=== PATIENT | male | born 1975 | race Caucasian/White ===

== ENCOUNTER 2024-02-07 11:07 | Outpatient (CLI) | payer OTHER | END 2024-02-07 11:08 | disposition home or self-care (01) | LOC: NAV RAD 11:07 | PROVIDERS: ATTEND Nurse Practitioner Family | DX: S43.102A Unspecified dislocation of left acromioclavicular joint, initial encounter (principal) | CPT/HCPCS: 73050 ==

== ENCOUNTER 2024-08-07 11:04 | Outpatient (CLI) | payer BC | END 2024-08-07 11:05 | disposition home or self-care (01) | LOC: NAV RAD 11:04 | PROVIDERS: ATTEND Nurse Practitioner Family | DX: M47.22 Other spondylosis with radiculopathy, cervical region (principal); M54.32 Sciatica, left side; M47.813 Spondylosis without myelopathy or radiculopathy, cervicothoracic region; M50.122 Cervical disc disorder at C5-C6 level with radiculopathy; M50.123 Cervical disc disorder at C6-C7 level with radiculopathy; M47.814 Spondylosis without myelopathy or radiculopathy, thoracic region; M25.752 Osteophyte, left hip | CPT/HCPCS: 72040; 72100; 72170 ==

== ENCOUNTER 2025-06-09 11:00 | Outpatient (CLI) | payer OTHER | END 2025-06-09 11:01 | disposition home or self-care (01) | LOC: NAV RAD 11:00 | PROVIDERS: ATTEND Physical Medicine & Rehabilitation | DX: M19.011 Primary osteoarthritis, right shoulder (principal); M75.101 Unspecified rotator cuff tear or rupture of right shoulder, not specified as traumatic; M85.811 Other specified disorders of bone density and structure, right shoulder ==